=== PATIENT | male | born 1935 | race Caucasian/White ===

== ENCOUNTER → 2016-04-14 | Outpatient (CLI) | payer OTHER, BC ==
[~2016-04-14] MED LIST: ADVAIR DISKU1 INH; IBUPROFEN200 M1 PO; MULTIPLE VITAMIN PO; NORCO1 TA1 PO; OXYCODONE HCL5 MG PO; PROAIR HFA IN; VITAMIN C500 M1 PO
== END ==
LOC: LAB SRH 12:01
DX: C34.90 Malignant neoplasm of unspecified part of unspecified bronchus or lung (principal); R60.9 Edema, unspecified
CPT/HCPCS: 90074; 90100; 91320

== ENCOUNTER 2016-04-17 10:09 | Outpatient (CLI) | payer OTHER, BC | END 2016-04-17 23:00 | LOC: LAB SRH 10:09 | DX: R60.9 Edema, unspecified (principal); R89.9 Unspecified abnormal finding in specimens from other organs, systems and tissues | CPT/HCPCS: 90074; 90100; 91320 ==

== ENCOUNTER 2016-04-19 10:05 | Outpatient (CLI) | payer OTHER, BC ==
--- NOTE | 2016-04-19 10:49 | DIAGNOSTIC IMAGING REPORT ---
PROCEDURE: XR CHEST 2 VIEW INDICATION: CHRONIC PAIN, LUNG CANCER, CHEST PAIN TECHNIQUE: PA and lateral views. COMPARISON: Chest 08/19/1949 FINDINGS: 6 cm left paratracheal mass. Tumor nodules throughout the left upper lobe. There is infiltrate in the left mid lung field. There is a left pleural effusion. Right lung is clear. Heart and pulmonary vasculature normal. IMPRESSION: 1. Left paratracheal tumor mass with the tumor throughout the left upper lobe. Left mid lung field infiltrate and pleural effusion.
== END 2016-04-19 23:00 ==
LOC: XR SRH 10:05
DX: J90 Pleural effusion, not elsewhere classified (principal); R91.8 Other nonspecific abnormal finding of lung field; R07.9 Chest pain, unspecified; G89.29 Other chronic pain; C34.90 Malignant neoplasm of unspecified part of unspecified bronchus or lung

== ENCOUNTER 2016-04-19 15:38 | Emergency (ER) | payer OTHER, BC ==
--- NOTE | 2016-04-19 18:32 | ED ORDER SUMMARY ---
..... Patient: MAGUE FRYE OrderSheet [facility] VisitID: [id number] [address] [place] [address] 80y, M Registration Date/Time: 04/19/2016 ORDER SHEET Weight: 62.5 kg (stated) Allergies: Statins GENERAL ORDERS: CBC w Diff Urgent (16:13 04/19/2016 HBivens A.R.N.P.) (Ack 16:32 LNations ER Tech1) CMP Urgent (16:13 04/19/2016 HBivens A.R.N.P.) (Ack 16:32 LNations ER Tech1) Lactate, Serum Urgent (16:13 04/19/2016 HBivens A.R.N.P.) (Ack 16:32 LNations ER Tech1) PCT (Procalcitonin) Urgent (16:13 04/19/2016 HBivens A.R.N.P.) (Ack 16:32 LNations ER Tech1) EKG - ER Stat (16:13 04/19/2016 HBivens A.R.N.P.) (Ack 16:32 LNations ER Tech1) (16:56 JSimbeck R.N.) MEDICATION ORDERS: IV FLUIDS: Ceftriaxone IV 1 gm/50mL (NOW) (16:13 04/19/2016 HBivens A.R.N.P.) (17:00 JSanders R.N.) IV Saline Lock (16:04/19/2016 HBivens A.R.N.P.) (16:59 JSanders R.N.) ORDER SHEET NOTES: [Electronically signed by Nasrin Galvan R.N. (19:18 04/19/2016)] [Electronically signed by Sarai Wilson A.R.N.P. (20:16 04/19/2016)] [Electronically locked/signed by Nasrin Galvan R.N. (19:18 04/19/2016)]
--- NOTE | 2016-04-19 18:32 | ED CLINICAL REPORT ---
Clinical Report - Physicians/Mid Levels [facility] [address] [place] [address] 04/19/2016 15:40 Patient: MAGUE FRYE Time Seen: 15:58; initial patient contact, initial documentation, patient care assumed. Arrived- By private vehicle. Historian- patient. HISTORY OF PRESENT ILLNESS Chief Complaint: COUGH. This started about 3 weeks ago and is still present. The illness is described as moderate. The patient has had thick, green sputum and difficulty breathing . The patient has also had wheezing. He has had generalized chest discomfort (burning in chest for 3 wks). No fever or muscle aches. Additional history - No known contact with a sick individual. No recent travel. Similar symptoms previously: None. Recent medical care: The patient was seen recently in the office. ( saw pcp, Dr. Rodriguez, yesterday, had chest xray done this am, got phone call to). REVIEW OF SYSTEMS All systems otherwise negative, except as recorded above. PAST HISTORY See nurses notes. PROBLEMS: Fecal Impaction. Dehydration. Lung Cancer. Constipation. Thrombocytopenia. Neutropenia. COPD - Chronic Obstructive Pulmonary Disease. Cancer. --15:52 Nasrin Galvan R.N. ADDITIONAL SURGERIES: Apical lung resection. Eyelift. Hernia Repair. Sinus Surgery. Tonsillectomy & Adenoidectomy. --15:52 Nasrin Galvan R.N. SOCIAL HISTORY Former smoker. No alcohol use or drug use. No recent travel. Is a local resident. FAMILY HISTORY Negative. ADDITIONAL NOTES The nursing notes have been reviewed with agreement regarding the chief complaint, HPI, ROS, PMH and patient medications and allergies. PHYSICAL EXAM Vital Signs: 04/19/2016 15:48 BP: 124/58. HR: 118. RR: 20. O2 saturation: 92%. Temp: 98.3 F. Pain level now: 8/10. Have been reviewed as abnormal and appear to be correct. Blood pressure normal. Tachycardic. Respiratory rate normal. Temperature normal. Oxygen saturation normal. Appearance: Alert. No acute distress. Eyes: Pupils equal, round and reactive to light. Eyes normal inspection. ENT: Ears normal. Nose normal. Pharynx normal. Uvula midline. Neck: Normal inspection. Neck supple. CVS: Normal heart rate and rhythm. Heart sounds normal. Pulses normal. Respiratory: No respiratory distress. Breath sounds abnormal. Inspiratory mild wheezes in the left mid-lung posteriorly. Back: Normal inspection. Skin: Skin warm and dry. Normal skin color. No rash. Normal skin turgor. Extremities: Extremities exhibit normal ROM. No lower extremity edema. Neuro: Oriented X 3. No motor deficit. No sensory deficit. LABS, X-RAYS, AND EKG EKG: EKG time: (1648). No acute process. No acute ischemia. Normal EKG. Regular narrow-complex tachycardia (ventricular rate 104). RBBB. Left axis deviation. Normal EKG. The study has been interpreted contemporaneously by me (and interpreted by dr mondragon). The EKG appears to be a good tracing. Interpretation time: 1650. Laboratory Tests: CBC w Diff: (KILLIAN: 04/19/2016 17:00) ( [facility] 04/19/2016 17:23) IP Test Result Flag Units (Reference) WHITE BLOOD COUNT 15.2 H K/uL (4.5-11.5) RED BLOOD COUNT 3.95 L M/uL (4.50-5.90) HEMOGLOBIN 11.2 L gm/dL (13.5-17.5) HEMATOCRIT 34.4 L % (41.0-53.0) MEAN CELL VOLUME 87 fL (80-100) MEAN CORPUSCULAR HGB 28 pg (26-34) MEAN CORPUSCULAR HGB CONC 33 g/dL (31-37) RED CELL DISTRIBUTION WIDTH 14.6 % (11.6-14.8) PLATELET COUNT 405 H K/uL (150-400) Lactate, Serum: (KILLIAN: 04/19/2016 17:00) ( MsgRcvd 04/19/2016 17:30) Final results Test Result Flag Units (Reference) LACTIC ACID 1.5 mmol/L (0.4-2.0) CMP: (KILLIAN: 04/19/2016 17:00) ( MsgRcvd 04/19/2016 17:28) Final results Test Result Flag Units (Reference) GLUCOSE 103 mg/dL (70-110) BUN 24 H mg/dL (7-18) CREATININE 1.0 mg/dL (0.6-1.3) Estimated GFR >60 mL/min Estimated GFR- >60 mL/min Note: Persistent reduction over 3 months in eGFR<60 mL/min/1.73 m2 defines CKD. Patients with eGFR values>=60 mL/min/1.73 m2 may also have CKD if evidence ofpersistent proteinuria. Additional information may be foundat www.[email or web address].org. SODIUM 137 mmol/L (136-145) POTASSIUM 3.3 L mmol/L (3.5-5.1) CHLORIDE 95 L mmol/L (98-107) CARBON DIOXIDE 34 H mmol/L (21-32) CALCIUM 9.3 mg/dL (8.5-10.1) TOTAL PROTEIN 7.4 g/dL (6.4-8.2) ALBUMIN 2.4 L g/dL (3.3-5.0) BILIRUBIN, TOTAL 0.5 mg/dL (0.0-1.0) ALKALINE PHOSPHATASE 113 U/L (46-116) AST (SGOT) 23 U/L (15-37) ALT (SGPT) 22 U/L (12-78) . PROGRESS AND PROCEDURES Course of Care: xrays reviewed. Patient counseled in person regarding the patient's stable condition, test results and diagnosis. 17:45. Differential Diagnosis: Other possible considerations: pneumonia, sepsis, lung ca. Above considerations are based on history and physical exam. Differential diagnosis was discussed with patient. Disposition: Discharged home in good and unchanged condition (17:45). Condition: good and stable. CLINICAL IMPRESSION Bacterial bronchopneumonia. Vital signs recorded and reviewed; empiric antibiotics given in the ED and prescribed. No hypoxemia, respiratory failure or sepsis. INSTRUCTIONS Alternate Tylenol (Acetaminophen) and Motrin (Ibuprofen) for fever, temperature greater than 101 degrees orally. Take according to label instructions. Drink plenty of fluids for the next 24 hours until better. Warnings: GENERAL WARNINGS: Return or contact your physician immediately if your condition worsens or changes unexpectedly, if not improving as expected, or if other problems arise. Specifically return if problem worsens. Prescription Medications: Zithromax 250 mg tablets: take 2 orally today, followed by 1 daily for the next 4 days. No refills. Substitution is permissible. Follow-up: Follow up with your doctor in about two days even if well. Call for an appointment. Summary of care provided to patient and family. Understanding of the discharge instructions verbalized by patient. (Electronically signed by Sarai Wilson A.R.N.P. 04/19/2016 20:16)
--- NOTE | 2016-04-19 18:32 | ED ORDER SUMMARY ---
..... Patient: MAGUE FRYE OrderSheet [facility] VisitID: [id number] [address] [place] [address] 80y, M Registration Date/Time: 04/19/2016 ORDER SHEET Weight: 62.5 kg (stated) Allergies: Statins GENERAL ORDERS: CBC w Diff Urgent (16:13 04/19/2016 HBivens A.R.N.P.) (Ack 16:32 LNations ER Tech1) CMP Urgent (16:13 04/19/2016 HBivens A.R.N.P.) (Ack 16:32 LNations ER Tech1) Lactate, Serum Urgent (16:13 04/19/2016 HBivens A.R.N.P.) (Ack 16:32 LNations ER Tech1) PCT (Procalcitonin) Urgent (16:13 04/19/2016 HBivens A.R.N.P.) (Ack 16:32 LNations ER Tech1) EKG - ER Stat (16:13 04/19/2016 HBivens A.R.N.P.) (Ack 16:32 LNations ER Tech1) (16:56 JSimbeck R.N.) MEDICATION ORDERS: IV FLUIDS: Ceftriaxone IV 1 gm/50mL (NOW) (16:13 04/19/2016 HBivens A.R.N.P.) (17:00 JSanders R.N.) IV Saline Lock (16:04/19/2016 HBivens A.R.N.P.) (16:59 JSanders R.N.) ORDER SHEET NOTES: [Electronically signed by Nasrin Galvan R.N. (19:18 04/19/2016)] [Electronically signed by Sarai Wilson A.R.N.P. (20:16 04/19/2016)] [Electronically locked/signed by Nasrin Galvan R.N. (19:18 04/19/2016)]
--- NOTE | 2016-04-19 18:32 | ED NURSING NOTES ---
Clinical Report - [facility] [address] [place] [address] 04/19/2016 15:40 Patient: MAGUE FRYE TRIAGE Triage time 15:48 Apr 19 2016. Acuity: LEVEL 4. Chief Complaint: WHEEZING (Short of breath, burning in chest). 15:57 04/19/16. SEPSIS SCREEN: Sepsis Screen. Negative (no infection suspected/documented). OBED COMA SCORE: [place] Coma Scale: 15- eyes open spontaneously (4); best verbal response- oriented x 4 (5); best motor response- obeys commands (6). --15:57 Nasrin Galvan R.N. 15:48 04/19/16. BP: 124/58 (regular adult cuff) taken on the left arm, while sitting. HR: 118. RR: 20 (regular). O2 saturation: 92% on room air. Temp: 98.3 F (oral). Pain level now: 10/05. --15:57 Nasrin Galvan R.N. 15:48. --16:03 Nasrin Galvan R.N. late entry - 15:48. --16:32 Nasrin Galvan R.N. Weight: 62.5 kg stated. Height/Length: 72 inches Per Patient. BMI: 18.7. --15:53 Nasrin Galvan R.N. Medications Furosemide Oral. --15:51 Nasrin Galvan R.N. Potassium Chloride Oral. --15:51 Nasrin Galvan R.N. Synthroid Oral. --15:52 Nasrin Galvan R.N. Allergies Statins. --15:51 Nasrin Galvan R.N. History Arrived by private vehicle. Historian: patient. Accompanied by (). This started yesterday. Onset. (Burning in chest). ( Patient has productive cough, thick greenish in color per patient). 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 SOCIAL HX: Smoker- current status unknown. No alcohol use or drug use. ABUSE ASSESSMENT: No report of abuse. NUTRITIONAL RISK ASSESSMENT: The nutritional risk assessment revealed no deficiencies. FUNCTIONAL ASSESSMENT: Functional assessment: no impairments noted. LEARNING NEEDS ASSESSMENT: The learning needs assessment revealed no barriers. SKIN INTEGRITY ASSESSMENT: Skin integrity risk assessment completed. No skin integrity risk identified. --15:57 Nasrin Galvan R.N. ( Patient had chest xray couple hours ago). --16:03 Nasrin Galvan R.N. Primary physician (ELIZABETH DEVRIES). --16:32 Nasrin Galvan R.N. PROBLEMS: Fecal Impaction. Dehydration. Lung Cancer. Constipation. Thrombocytopenia. Neutropenia. COPD - Chronic Obstructive Pulmonary Disease. Cancer. --15:52 Nasrin Galvan R.N. ADDITIONAL SURGERIES: Apical lung resection. Eyelift. Hernia Repair. Sinus Surgery. Tonsillectomy & Adenoidectomy. --15:52 Nasrin Galvan R.N. Interventions ID band on patient. To treatment room. --15:57 Nasrin Galvan R.N. PHYSICAL ASSESSMENT 15:59 04/19/16. To room via wheelchair. RESPIRATORY: Wheezes bilaterally. --15:59 Nasrin Galvan R.N. NURSING PROGRESS NOTES 15:59 04/19/16. Patient gowned. Head of bed elevated. Reassurance given. Two patient identifiers checked. Call light placed in reach. Side rails up x 1. Bed placed in lowest position. Brakes of bed on. Patient ready for evaluation- chart flagged. --15:59 Nasrin Galvan R.N. 16:50 04/19/2016 Site #1 started via IV in the left forearm with an 20g angiocath, with aseptic technique and good blood return; one attempt. Saline lock flushed with 10 mL saline. --16:55 Carlos De La Torre R.N. 16:57 04/19/16. --16:57 Nasrin Galvan R.N. 16:55 04/19/16. BP: 124/71 (regular adult cuff) taken on the right arm, while sitting. HR: 56 (regular). RR: 20 (regular). O2 saturation: 93% on room air. Temp: 98.7 F (oral). Pain level now: 0/10. --16:57 Nasrin Galvan R.N. 16:54 04/19/2016 Started 1 gm of Ceftriaxone IVPB in bag #1 50 mL; at 100 mL/hr over 30 minute(s) via site #1 via IV pump. Allergies verified and confirmed 5 rights. IV patency established. IV site checked: no pain, redness, or swelling. IV flushed thoroughly pre- and post-medication administration. --17:00 Nasrin Galvan R.N. 17:26 04/19/16. --17:26 Nasrin Galvan R.N. 17:25 04/19/16. BP: 122/49 (regular adult cuff) taken on the right arm, while lying. HR: 63 (regular). RR: 18 (regular). O2 saturation: 93% on room air. Pain level now: 0/10. --17:26 Nasrin Galvan R.N. 17:22 04/19/2016 Ceftriaxone IVPB Discontinued: bag #1 completed. Total amount infused: 50 mL. IV patency established. IV site checked: no pain, redness, or swelling. IV flushed thoroughly. --17:27 Nasrin Galvan R.N. 17:27 04/19/16. --17:27 Nasrin Galvan R.N. EKG time: (16:48). EKG was performed by a tech and shown to the ED physician. --17:42 Soumya Gruber 18:40 04/19/2016 IV Saline Lock Drip IV Discontinued: bag #1 completed. Total amount infused: 50 mL. IV patency established. IV site checked: no pain, redness, or swelling. IV flushed thoroughly. --19:18 Nasrin Galvan R.N. DISPOSITION / DISCHARGE 18:36 04/19/2016 Site #1 removed upon discharge. Bandage applied. --18:36 Nasrin Galvan R.N. 18:39 04/19/16. Condition at departure: improved. No learning barriers present. Discharge instructions provided and reviewed with the patient and spouse. Reviewed medication(s) side effects and precautions information. Patient and spouse verbalized understanding. The patient was discharged by the nurse practitioner. He was discharged home and accompanied by spouse. He left the Emergency Department in a wheelchair and via private vehicle. Spouse driving. FALL RISK ASSESSMENT: Fall risk assessment completed. No fall risk identified. --18:39 Nasrin Galvan R.N. 18:34 04/19/16. BP: 107/61 (regular adult cuff) taken on the right arm, while lying. HR: 106 (regular). RR: 18 (regular). O2 saturation: 93% on room air. Temp: 98.7 F (oral). Pain level now: 0/10. --18:39 Nasrin Galvan R.N. late entry - 18:40. Departure time: 184Apr 19 2016. --19:16 Nasrin Galvan R.N. Locked/Released at 04/19/2016 19:18 by Nasrin Galvan R.N.
--- NOTE | 2016-04-19 20:16 | ED MED RECONCILIATION SUMMARY ---
Patient: MAGUE FRYE Medication Reconciliation Report [facility] VisitID: [id number] [address] [place] [address] 80y, M Registration Date/Time: 04/19/2016 Weight: 62.5 kg Height/Length: 72 in. BMI: 18.7 ALLERGIES: Statins The patient's Home Medications are listed below: THE FOLLOWING MEDICATIONS NEED TO BE RECONCILED: Furosemide Oral Potassium Chloride Oral Synthroid Oral The source(s) of the original Home Medication information: Not obtained. The following Medications were given to the patient in the Emergency Department: Ceftriaxone [IVPB] IVPB bolus 0, then 1 gm 100 mL/hr, administered: 04/19/2016 4:54:00 PM The following Medications were prescribed to the patient: Zithromax 250 mg tablets: take 2 orally today, followed by 1 daily for the next 4 days. No refills. Substitution is permissible. -- Sarai Wilson A.R.N.P.
--- NOTE | 2016-04-19 20:16 | ED MAR SUMMARY ---
..... Medication Administration Record [facility] [address] [place] [address] Patient: MAGUE FRYE Visit ID: [id number] 80y, M Weight: 62.5 kg Height/Length: 72 in BMI: 18.7 ALLERGIES: Statins Start 16:54 04/19/2016 Nasrin Galvan R.N., Stop 17:22 04/19/2016 Nasrin Galvan R.N. Medication Administered: CEFTRIAXONE [IVPB], Dose: 1 gm IVPB over 30 minute(s), Rate: 100 mL/hr, Dispensed: 50 mL bag, Site: #1 left forearm. Medication Ordered: Ceftriaxone IV 1 gm/50mL (NOW).
--- NOTE | 2016-04-19 20:16 | ED MED RECONCILIATION SUMMARY ---
Patient: MAGUE FRYE Medication Reconciliation Report [facility] VisitID: [id number] [address] [place] [address] 80y, M Registration Date/Time: 04/19/2016 Weight: 62.5 kg Height/Length: 72 in. BMI: 18.7 ALLERGIES: Statins The patient's Home Medications are listed below: THE FOLLOWING MEDICATIONS NEED TO BE RECONCILED: Furosemide Oral Potassium Chloride Oral Synthroid Oral The source(s) of the original Home Medication information: Not obtained. The following Medications were given to the patient in the Emergency Department: Ceftriaxone [IVPB] IVPB bolus 0, then 1 gm 100 mL/hr, administered: 04/19/2016 4:54:00 PM The following Medications were prescribed to the patient: Zithromax 250 mg tablets: take 2 orally today, followed by 1 daily for the next 4 days. No refills. Substitution is permissible. -- Sarai Wilson A.R.N.P.
--- NOTE | 2016-04-19 20:16 | ED MAR SUMMARY ---
..... Medication Administration Record [facility] [address] [place] [address] Patient: MAGUE FRYE Visit ID: [id number] 80y, M Weight: 62.5 kg Height/Length: 72 in BMI: 18.7 ALLERGIES: Statins Start 16:54 04/19/2016 Nasrin Galvan R.N., Stop 17:22 04/19/2016 Nasrin Galvan R.N. Medication Administered: CEFTRIAXONE [IVPB], Dose: 1 gm IVPB over 30 minute(s), Rate: 100 mL/hr, Dispensed: 50 mL bag, Site: #1 left forearm. Medication Ordered: Ceftriaxone IV 1 gm/50mL (NOW).
--- NOTE | 2016-04-19 20:16 | ED DISCHARGE INSTRUCTIONS ---
Patient: MAGUE FRYE General Instructions [facility] VisitID: [id number] [place] [address] 80y, M Registration Date/Time: 04/19/2016 Bacterial bronchopneumonia. Vital signs recorded and reviewed; empiric antibiotics given in the ED and prescribed. No hypoxemia, respiratory failure or sepsis. INSTRUCTIONS Alternate Tylenol (Acetaminophen) and Motrin (Ibuprofen) for fever, temperature greater than 101 degrees orally. Take according to label instructions. Drink plenty of fluids for the next 24 hours until better. Warnings: GENERAL WARNINGS: Return or contact your physician immediately if your condition worsens or changes unexpectedly, if not improving as expected, or if other problems arise. Specifically return if problem worsens. Prescription Medications: Zithromax 250 mg tablets: take 2 orally today, followed by 1 daily for the next 4 days. No refills. Substitution is permissible. Follow-up: Follow up with your doctor in about two days even if well. Call for an appointment. Summary of care provided to patient and family. Understanding of the discharge instructions verbalized by patient. ADDITIONAL INFORMATION Pneumonia (Adult) Pneumonia is an infection deep within the lung, in the small air sacs (alveoli). It may be due to a virus or bacteria and is usually treated with an antibiotic. Severe cases require treatment in the hospital. Milder cases can be treated at home. Symptoms usually start to improve during the first2 days of treatment. Home Care: Rest at home for the first 23 days or until you feel stronger. When resuming activity, dont let yourself become overly tired. Avoid exposure to cigarette smoke (yours or others). You may use acetaminophen (Tylenol) or ibuprofen (Motrin, Advil) to control fever or pain, unless another medicine was prescribed. [NOTE: If you have chronic liver or kidney disease or ever had a stomach ulcer or GI bleeding, talk with your doctor before using these medicines.] (Aspirin should never be used in anyone under 18 years of age who is ill with a fever. It may cause severe liver damage.) Your appetite may be poor so a light diet is fine. Keep well hydrated by drinking 68 glasses of fluids per day (water, sport drinks such as Gatorade, sodas without caffeine, juices, tea, soup, etc.). This will help loosen secretions in the lung, making it easier for you to cough up the phlegm (sputum). If you also have heart or kidney disease, check with your doctor before you drink extra amounts of fluids. Finish all antibiotic medicine prescribed, even if you are feeling better after a few days. Follow Up with your doctor in the next 23 days (or as advised) to be sure you are responding properly to the medicine. [NOTE: If you are age 65 or older, or if you have chronic lung disease (asthma, emphysema or COPD), we recommendthe pneumococcal vaccination and a yearlyinfluenzavaccination(flu-shot) every . Ask your doctor about this.] Get Prompt Medical Attention if any of the following occur: Not getting better within the first 48 hours of treatment Increasing shortness of breath or rapid breathing (over 25 breaths/minute) Coughing up blood or increasing chest pain with breathing Fever of 100.4F (38C) oral or higher, not better with fever medication Increasing weakness, dizziness or fainting Increasing thirst or dry mouth Sinus pain, headache or a stiff neck Chest pain not caused by coughing Fever Control (Adult) A fever is a natural reaction of the body to an illness. In most cases, the temperature itself is not harmful. It actually helps the body fight infections. A fever does not need to be treated unless you feel very uncomfortable. Home Care If you feel warm, check your temperature. If you feel very uncomfortable and your temperature is at or higher than 100.4F (38C) oral, you may take acetaminophen (Tylenol) every 4 to 6 hours. If you cant take or keep down oral medicine, ask your pharmacist for Tylenol suppositories, which you can get without a prescription. If the fever does not respond to acetaminophen within 1 hour, take ibuprofen (Advil or Motrin). If this works, keep taking the ibuprofen every 6 to 8 hours. Note: If you have chronic liver or kidney disease or ever had a stomach ulcer or GI bleeding, talk with your doctor before using these medications. If either medication alone does not keep the fever down, you may alternate the two medicines every 3 to 4 hours, only if your healthcare provider has instructed you to do so. For example, take Motrin then wait 3 hours, take Tylenol then wait 3 hours, take Motrin, and so on. Follow your healthcare providers instructions exactly. Clothing: Keep clothing light because excess body heat is lost through the skin. The fever will go up if you wear extra layers or wrap in blankets. Fluids: Fever causes the body to lose water through evaporation. Drink plenty of fluids such as water, juice, clear sodas, roxane vik, or lemonade. Do not use aspirin in anyone under 18 years of age who is ill with a fever. It can cause severe liver damage. Follow Up with your doctor or as advised by our staff if you do not get better after 48 hours. Get Prompt Medical Attention if any of the following occur: Fever does not get better after taking fever medication Fast or difficult breathing Earache, sinus pain, stiff or painful neck, headache, repeated diarrhea or vomiting You feel unusually irritable, drowsy, or confused A rash appears You feel weak or dizzy, or that you might faint Azithromycin Oral tablet What is this medicine? AZITHROMYCIN (az ith roma KEAGANE sin) is a macrolide antibiotic. It is used to treat or prevent certain kinds of bacterial infections. It will not work for colds, flu, or other viral infections. How should I use this medicine? Take this medicine by mouth with a full glass of water. Follow the directions on the prescription label. The tablets can be taken with food or on an empty stomach. If the medicine upsets your stomach, take it with food. Take your medicine at regular intervals. Do not take your medicine more often than directed. Take all of your medicine as directed even if you think your are better. Do not skip doses or stop your medicine early. Talk to your hr specialist regarding the use of this medicine in children. Special care may be needed. What side effects may I notice from receiving this medicine? Side effects that you should report to your doctor or health infant childcare provider as soon as possible: allergic reactions like skin rash, itching or hives, swelling of the face, lips, or tongue confusion, nightmares or hallucinations dark urine difficulty breathing hearing loss irregular heartbeat or chest pain pain or difficulty passing urine redness, blistering, peeling or loosening of the skin, including inside the mouth white patches or sores in the mouth yellowing of the eyes or skin Side effects that usually do not require medical attention (report to your doctor or health infant childcare provider if they continue or are bothersome): diarrhea dizziness, drowsiness headache stomach upset or vomiting tooth discoloration vaginal irritation What may interact with this medicine? Do not take this medicine with any of the following medications: lincomycin This medicine may also interact with the following medications: amiodarone antacids cyclosporine digoxin magnesium nelfinavir phenytoin warfarin What if I miss a dose? If you miss a dose, take it as soon as you can. If it is almost time for your next dose, take only that dose. Do not take double or extra doses. Where should I keep my medicine? Keep out of the reach of children. Store at room temperature between 15 and 30 degrees C (59 and 86 degrees F). Throw away any unused medicine after the expiration date. What should I tell my health care provider before I take this medicine? They need to know if you have any of these conditions: kidney disease liver disease irregular heartbeat or heart disease an unusual or allergic reaction to azithromycin, erythromycin, other macrolide antibiotics, foods, dyes, or preservatives or trying to get breast-feeding What should I watch for while using this medicine? Tell your doctor or health infant childcare provider if your symptoms do not improve. Do not treat diarrhea with over the counter products. Contact your doctor if you have diarrhea that lasts more than 2 days or if it is severe and watery. This medicine can make you more sensitive to the sun. Keep out of the sun. If you cannot avoid being in the sun, wear protective clothing and use sunscreen. Do not use sun lamps or tanning beds/booths. You have been given the following additional information: Pneumonia (Adult) Fever Control (Adult) Azithromycin Oral tablet (Electronically signed by Sarai Wilson A.R.N.P. 04/19/2016 20:16)
== END 2016-04-19 18:40 | disposition home or self-care (01) ==
LOC: ED SRH 15:38
DX: J18.0 Bronchopneumonia, unspecified organism (principal); B96.89 Other specified bacterial agents as the cause of diseases classified elsewhere; Z85.118 Personal history of other malignant neoplasm of bronchus and lung; Z87.09 Personal history of other diseases of the respiratory system; Z87.891 Personal history of nicotine dependence
CPT/HCPCS: 90100; 91643; 92031; 93004; 95059